=== PATIENT | male | born 1975 | race Caucasian/White ===

== ENCOUNTER 2018-12-22 09:03 | Emergency (ER) | payer MEDICAID ==
[~2018-12-22] VITALS: Ht 180.3 cm; Wt 92.9 kg
[2018-12-22 09:09] VITALS: BP 142/94
[2018-12-22] MEDS ORDERED: ketorolac trometh inj. 60 MG/2 ML VIAL IM ONE (10:00)
[2018-12-22] MEDS ORDERED: cyclobenzaprine 10mg tablet PO ONE (10:00)
[2018-12-22] MEDS ORDERED: ondansetron 4mg rapidly disintigrating tab PO ONE (10:00)
[2018-12-22] MEDS ORDERED: HYDROcodone/acetaminophen 5mg/325mg tablet PO ONE (10:00)
[2018-12-22] MEDS ORDERED: acetaminophen 325mg tablet PO ONE (10:10)
[2018-12-22] MEDS ORDERED: ACET-2615 PO (10:47)
[2018-12-22] MEDS ORDERED: HYDR-3965 PO (10:47)
[2018-12-22] MEDS ORDERED: IBUP-1984 PO (10:47)
[2018-12-22] MEDS ORDERED: CYCL-1 PO (10:47)
== END 2018-12-22 10:56 | disposition home or self-care (01) ==
LOC: ER 09:04
DX: M54.6 Pain in thoracic spine (principal); Z72.0 Tobacco use; V43.52XA Car driver injured in collision with other type car in traffic accident, initial encounter; Y93.89 Activity, other specified; Y92.488 Other paved roadways as the place of occurrence of the external cause; Y99.8 Other external cause status
CPT/HCPCS: 72128; 96372; 99284; J1885